=== PATIENT | male | born 1985 | race American Indian/Alaskan Native ===

== ENCOUNTER 2020-02-16 10:11 | Inpatient (IN) | payer SELFPAY ==
[2020-02-16] MEDS ORDERED: LORazepam 2 MG/ML VIAL IV ONE ×2 (10:41→13:12)
[2020-02-16] MEDS ORDERED: MAGNESIUM SULFATE 2 GM/50 ML BAG IV ONE (10:46)
[2020-02-16] MEDS ORDERED: SODIUM CHLORIDE 0.9% 1000 ML 1,000 ML IV ONE ×2 (10:47→14:33)
--- NOTE | 2020-02-16 10:55 | Emergency Department Report ---
HPI - General Chief Complaint: Nausea/Vomiting/Diarrhea Time Seen by Provider: 02/16/20 10:40 - HPI HPI: Room 2 The patient is a 34-year-old male present with a chief complaint of alcohol withdrawal. Patient states for the past 2 days he has had back pain leg cramps eye burning and loss of appetite. Patient also admits to nausea for the past 2 days. Patient states he is experienced the symptoms in the past when he is withdrawing from alcohol. Patient states he goes on alcohol binges last consumed approximately 2 days ago. ED Past Medical Hx - Past Medical History Previous Medical History?: Yes Hx Hypertension: Yes Hx Diabetes: Yes - Surgical History Past Surgical History?: No - Family History Family history: no significant - Social History Smoking Status: Never Smoker Substance Use Type: None (Denies illicit drug use), Alcohol (Heavy binges) - Medications Home Medications: Home Medications Medication Instructions Recorded Confirmed Last Taken Type lisinopriL [Zestril] 20 mg PO QDAY 02/16/20 02/16/20 12/18/19 History ED Review of Systems ROS: Stated complaint: BLOOD PRESSURE Other details as noted in HPI Constitutional: denies: fever Eyes: other (Eyes burning) ENT: denies: throat pain Respiratory: no symptoms reported Cardiovascular: denies: chest pain Endocrine: no symptoms reported Gastrointestinal: nausea Genitourinary: denies: dysuria Musculoskeletal: back pain Neurological: denies: headache Physical Exam - Physical Exam Vital Signs: Vital Signs 02/16/20 10:26 Temperature 98.6 F Pulse Rate 126 H Respiratory 24 Rate Blood Pressure 241/140 [Right] O2 Sat by Pulse 96 Oximetry Physical Exam: GENERAL: The patient is well-developed well-nourished male sitting on stretcher not appearing to be in acute distress. [] HEENT: Normocephalic. Atraumatic. Extraocular motions are intact. Patient has moist mucous membranes. NECK: Supple. Trachea midline CHEST/LUNGS: Clear to auscultation. There is no respiratory distress noted. HEART/CARDIOVASCULAR: Regular. There is tachycardia. There is no gallop rub or murmur. ABDOMEN: Abdomen is soft, nontender. Patient has normal bowel sounds. There is no abdominal distention. SKIN: There is no rash. There is no diaphoresis. NEURO: The patient is awake, alert, and oriented. The patient is cooperative. The patient has no focal neurologic deficits. The patient has normal speech. Cranial nerves II through XII grossly intact MUSCULOSKELETAL: There is no evidence of acute injury. ED Course Vital Signs 02/16/20 10:26 Temperature 98.6 F Pulse Rate 126 H Respiratory 24 Rate Blood Pressure 241/140 [Right] O2 Sat by Pulse 96 Oximetry ED Medical Decision Making - Lab Data Result diagrams: 02/16/20 11:16 02/16/20 11:16 Laboratory Tests 02/16/20 02/16/20 02/16/20 10:43 11:16 11:16 WBC 8.2 RBC 5.38 H Hgb 12.1 Hct 37.0 MCV 69 L MCH 23 L MCHC 33 RDW 20.6 H Plt Count 176 Add Manual Diff Complete Total Counted 100 Seg Neuts % (Manual) 74.0 H Band Neutrophils % 0 Lymphocytes % (Manual) 20.0 Reactive Lymphs % (Man) 0 Monocytes % (Manual) 3.0 Eosinophils % (Manual) 1.0 Basophils % (Manual) 2.0 H Metamyelocytes % 0 Myelocytes % 0 Promyelocytes % 0 Blast Cells % 0 Nucleated RBC % Not Reportable Seg Neutrophils # Man 6.1 Band Neutrophils # 0.0 Lymphocytes # (Manual) 1.6 Abs React Lymphs (Man) 0.0 Monocytes # (Manual) 0.2 Eosinophils # (Manual) 0.1 Basophils # (Manual) 0.2 H Metamyelocytes # 0.0 Myelocytes # 0.0 Promyelocytes # 0.0 Blast Cells # 0.0 WBC Morphology Not Reportable Hypersegmented Neuts Not Reportable Hyposegmented Neuts Not Reportable Hypogranular Neuts Not Reportable Smudge Cells Not Reportable Toxic Granulation Not Reportable Toxic Vacuolation Not Reportable Dohle Bodies Not Reportable Pelger-Huet Anomaly Not Reportable Samy Rods Not Reportable Platelet Estimate Consistent w auto Clumped Platelets Not Reportable Plt Clumps, EDTA Not Reportable Large Platelets Not Reportable Giant Platelets Not Reportable Platelet Satelliting Not Reportable Plt Morphology Comment Not Reportable RBC Morphology Not Reportable Dimorphic RBCs Not Reportable Polychromasia Not Reportable Hypochromasia 1+ Poikilocytosis Not Reportable Anisocytosis 1+ Microcytosis 1+ Macrocytosis Not Reportable Spherocytes Not Reportable Pappenheimer Bodies Not Reportable Sickle Cells Not Reportable Target Cells Not Reportable Tear Drop Cells Not Reportable Ovalocytes Not Reportable Helmet Cells Not Reportable Aldana-Banning Bodies Not Reportable Ell[place] Rings Not Reportable Ta Cells Not Reportable Bite Cells Not Reportable Crenated Cell Not Reportable Elliptocytes Not Reportable Acanthocytes (Spur) Not Reportable Rouleaux Not Reportable Hemoglobin C Crystals Not Reportable Schistocytes Not Reportable Malaria parasites Not Reportable Roddy Bodies Not Reportable Hem Pathologist Commnt No Sodium 132 L Potassium 3.3 L Chloride 87.6 L Carbon Dioxide 32 H Anion Gap 16 BUN 5 L Creatinine 1.3 Estimated GFR > 60 BUN/Creatinine Ratio 4 Glucose 169 H POC Glucose 159 H Calcium 9.0 Magnesium 1.20 L Total Bilirubin 1.10 AST 105 H ALT 87 H Alkaline Phosphatase 59 Total Creatine Kinase 1875 H CK-MB (CK-2) 5.6 H CK-MB (CK-2) Rel Index 0.2 Troponin T < 0.010 Total Protein 6.9 Albumin 4.3 Albumin/Globulin Ratio 1.7 Lipase 32 TSH Free T4 Plasma/Serum Alcohol 02/16/20 02/16/20 11:16 11:16 WBC RBC Hgb Hct MCV MCH MCHC RDW Plt Count Add Manual Diff Total Counted Seg Neuts % (Manual) Band Neutrophils % Lymphocytes % (Manual) Reactive Lymphs % (Man) Monocytes % (Manual) Eosinophils % (Manual) Basophils % (Manual) Metamyelocytes % Myelocytes % Promyelocytes % Blast Cells % Nucleated RBC % Seg Neutrophils # Man Band Neutrophils # Lymphocytes # (Manual) Abs React Lymphs (Man) Monocytes # (Manual) Eosinophils # (Manual) Basophils # (Manual) Metamyelocytes # Myelocytes # Promyelocytes # Blast Cells # WBC Morphology Hypersegmented Neuts Hyposegmented Neuts Hypogranular Neuts Smudge Cells Toxic Granulation Toxic Vacuolation Dohle Bodies Pelger-Huet Anomaly Samy Rods Platelet Estimate Clumped Platelets Plt Clumps, EDTA Large Platelets Giant Platelets Platelet Satelliting Plt Morphology Comment RBC Morphology Dimorphic RBCs Polychromasia Hypochromasia Poikilocytosis Anisocytosis Microcytosis Macrocytosis Spherocytes Pappenheimer Bodies Sickle Cells Target Cells Tear Drop Cells Ovalocytes Helmet Cells Aldana-Banning Bodies Ellsworth Rings [place] Cells Bite Cells Crenated Cell Elliptocytes Acanthocytes (Spur) Rouleaux Hemoglobin C Crystals Schistocytes Malaria parasites Roddy Bodies Hem Pathologist Commnt Sodium Potassium Chloride Carbon Dioxide Anion Gap BUN Creatinine Estimated GFR BUN/Creatinine Ratio Glucose POC Glucose Calcium Magnesium Total Bilirubin AST ALT Alkaline Phosphatase Total Creatine Kinase CK-MB (CK-2) CK-MB (CK-2) Rel Index Troponin T Total Protein Albumin Albumin/Globulin Ratio Lipase TSH 1.700 Free T4 2.03 H Plasma/Serum Alcohol < 0.01 - EKG Data -: EKG Interpreted by Me EKG shows normal: sinus rhythm Rate: tachycardia (116 bpm) - EKG Data Interpretation: nonspecific ST-T wave sylvia (T wave inversion in lead V6), LVH - Differential Diagnosis Alcohol withdrawal, hypothyroidism, gastritis, rhabdomyolysis Critical care attestation.: If time is entered above; I have spent that time in minutes in the direct care of this critically ill patient, excluding procedure time. ED Disposition Clinical Impression: Alcohol withdrawal, Rhabdomyolysis, Hypomagnesemia Disposition: OP ADMIT IP TO THIS HOSP Is pt being admited?: Yes Does the pt Need Aspirin: Yes Condition: Serious Referrals: PRIMARY CARE,MD [Primary Care Provider] - 3-5 Days Time of Disposition: 14:40 (Hospitalist paged (Dr. Foster))
[2020-02-16] MEDS ORDERED: THIAMINE 100 MG, FOLIC ACID 1 MG, MULTIPLE VITAMIN INJ, ADULT 10 ML in SODIUM CHLORIDE ... IV ONE (11:00)
[2020-02-16 11:31] LABS: Hemoglobin 12.1 gm/dl (11.8-15.2); Mean Corpuscular HGB Conc 33 % (32-34); Platelet Count 176 K/mm3 (140-440); Red Blood Count 5.38 M/mm3 (3.65-5.03)
[2020-02-16 11:37] LABS: Mean Corpuscular Volume 69 fl (84-94); Red Cell Distribution Width 20.6 % (13.2-15.2)
[2020-02-16 12:00] LABS: Alanine Aminotransferase 87 units/L (7-56); Albumin 4.3 g/dL (3.9-5); BUN/Creatinine Ratio 4; Blood Urea Nitrogen 5 mg/dL (9-20); Creatine Kinase MB 5.6 ng/mL (0.0-4.0); Hemolysis Index 5
[2020-02-16 12:06] LABS: Free T4 (Free Thyroxine) 2.03 ng/dL (0.76-1.46)
[2020-02-16 12:24] LABS: Total Cells Counted 100
[2020-02-16 12:25] LABS: Hypochromasia 1+
[2020-02-16 12:26] LABS: Anisocytosis 1+; Platelet Estimate Consistent w Auto
[2020-02-16] MEDS ORDERED: LORazepam 2 MG/ML VIAL IV PRN ×3 (13:12)
[2020-02-16 18:11] VITALS: BP 198/130
== END 2020-02-16 17:50 | disposition left against medical advice (07) | DRG 894 ==
LOC: ED 10:11 → 4A 15:51
PROVIDERS: ADMIT Internal Medicine; ATTEND Internal Medicine
DX: F10.239 Alcohol dependence with withdrawal, unspecified (principal); M62.82 Rhabdomyolysis; E83.42 Hypomagnesemia; I10 Essential (primary) hypertension; E11.9 Type 2 diabetes mellitus without complications; Y90.9 Presence of alcohol in blood, level not specified; Z53.29 Procedure and treatment not carried out because of patient's decision for other reasons
CPT/HCPCS: 36415; 80053; 80320; 82550; 82553; 82962; 83690; 83735; 84439; 84443; 84484; 85007; 85025; 93005; 96365; 96366; 96375; G0378; G0480; J2060; J3411; J3475; J7030

== ENCOUNTER 2021-02-17 08:52 | Emergency (ER) | payer SELFPAY ==
--- NOTE | 2021-02-17 09:45 | Event Note ---
ED Screening Note Date of service: 02/17/21 Time: 09:40 ED Screening Note: 35-year-old obese -[place] male with a past medical history of hypertension diabetes and is noncompliant to his medication regiment secondary to relocating from [place]. Patient denies any chest pain no shortness of breath. Patient states that he went to get a physical on Friday and was told that his blood pressure and blood sugar was elevated. Patient denies any headache no dizziness no nausea no vomiting. It was noted that patient was tachycardic at 120 and a blood pressure elevated of 217/125. This initial assessment/diagnostic orders/clinical plan/treatment(s) is/are subject to change based on patients health status, clinical progression and re- assessment by fellow clinical providers in the ED. Further treatment and workup at subsequent clinical providers discretion. Patient/guardian urged not to elope from the ED as their condition may be serious if not clinically assessed and managed. Initial orders include: CBC CMP maia, ua ekg.
[2021-02-17] MEDS ORDERED: cloNIDine 0.1 MG TAB PO ONE (09:59)
--- NOTE | 2021-02-17 10:21 | Emergency Department Report ---
ED General Adult HPI - General Chief complaint: High BP Stated complaint: HBP,AND HIGH PRESSURE Time Seen by Provider: 02/17/21 09:29 Source: patient Mode of arrival: Ambulatory Limitations: No Limitations - History of Present Illness Initial comments: Patient is 35 years old male with history of hypertension and diabetes. Patient is noncompliant with his medication. Patient presented to the ER stating that his blood pressure is really high. Patient denied any headache, neck pain, chest pain or shortness of breath. Patient denied any focal weakness numbness or tingling sensation. No bowel or bladder incontinence. Patient stated that he was taking lisinopril however his blood pressure was not controlled on the medication. - Related Data Home Medications Medication Instructions Recorded Confirmed Last Taken lisinopriL [Zestril] 20 mg PO QDAY 02/16/20 02/16/20 12/18/19 Previous Rx's Medication Instructions Recorded Last Taken Type Metformin HCl [metFORMIN] 500 mg PO BID #60 tablet 02/16/20 Unknown Rx Valsartan [Diovan] 160 mg PO BID 30 Days #60 tablet 02/16/20 Unknown Rx amLODIPine 10 mg PO DAILY #30 tab 02/17/21 Unknown Rx hydroCHLOROthiazide [HCTZ] 25 mg PO QDAY #30 tablet 02/17/21 Unknown Rx Allergies Allergy/AdvReac Type Severity Reaction Status Date / Time No Known Allergies Allergy Unverified 02/16/20 10:26 ED Review of Systems ROS: Stated complaint: HBP,AND HIGH PRESSURE Other details as noted in HPI Comment: All other systems reviewed and negative Constitutional: denies: chills, fever Respiratory: denies: cough, shortness of breath, SOB with exertion, SOB at rest Cardiovascular: denies: chest pain, palpitations Gastrointestinal: denies: abdominal pain, nausea, vomiting, diarrhea, constipation, hematemesis, melena, hematochezia Musculoskeletal: denies: back pain Neurological: denies: headache, weakness, numbness, paresthesias, confusion ED Past Medical Hx - Past Medical History Previous Medical History?: Yes Hx Hypertension: Yes Hx Diabetes: Yes - Surgical History Past Surgical History?: No - Social History Smoking Status: Never Smoker Substance Use Type: None (Denies illicit drug use), Alcohol (Heavy binges) - Medications Home Medications: Home Medications Medication Instructions Recorded Confirmed Last Taken Type Metformin HCl [metFORMIN] 500 mg PO BID #60 tablet 02/16/20 Unknown Rx Valsartan [Diovan] 160 mg PO BID 30 Days #60 tablet 02/16/20 Unknown Rx lisinopriL [Zestril] 20 mg PO QDAY 02/16/20 02/16/20 12/18/19 History amLODIPine 10 mg PO DAILY #30 tab 02/17/21 Unknown Rx hydroCHLOROthiazide [HCTZ] 25 mg PO QDAY #30 tablet 02/17/21 Unknown Rx ED Physical Exam - General Limitations: No Limitations General appearance: alert, in no apparent distress - Head Head exam: Present: atraumatic, normocephalic, normal inspection - Eye Eye exam: Present: normal appearance, PERRL - ENT ENT exam: Present: normal exam, normal orophraynx, mucous membranes moist - Neck Neck exam: Present: normal inspection, full ROM. Absent: tenderness, meningismus - Respiratory Respiratory exam: Present: normal lung sounds bilaterally - Cardiovascular Cardiovascular Exam: Present: regular rate, normal rhythm, normal heart sounds - GI/Abdominal GI/Abdominal exam: Present: soft, normal bowel sounds. Absent: distended, tenderness, guarding, rebound, rigid, organomegaly, mass, bruit, pulsatile mass, hernia - Extremities Exam Extremities exam: Present: normal inspection, full ROM, normal capillary refill. Absent: tenderness - Back Exam Back exam: Present: normal inspection, full ROM. Absent: CVA tenderness (R), CVA tenderness (L) - Neurological Exam Neurological exam: Present: alert, oriented X3, CN II-XII intact, normal gait, reflexes normal. Absent: motor sensory deficit - Psychiatric Psychiatric exam: Present: normal mood - Skin Skin exam: Present: warm, intact, normal color ED Course Vital Signs 02/17/21 02/17/21 02/17/21 09:22 11:30 12:32 Temperature 98.8 F 99.0 F Pulse Rate 120 H 88 100 H Respiratory 24 18 Rate Blood Pressure 217/125 190/122 167/111 O2 Sat by Pulse 98 98 Oximetry ED Medical Decision Making - Lab Data Result diagrams: 02/17/21 10:08 02/17/21 10:08 - Medical Decision Making Patient is 35 years old male with history of hypertension and diabetes. Patient is noncompliant with his medication. Patient presented to the ER stating that his blood pressure is really high. Patient denied any headache, neck pain, chest pain or shortness of breath. Patient denied any focal weakness numbness or tingling sensation. No bowel or bladder incontinence. Patient stated that he was taking lisinopril however his blood pressure was not controlled on the medication. Patient remained stable in the ER. Patient blood pressure improved significantly after 0.2 mg of clonidine. Labs reviewed and is unremarkable. Patient given prescription for Norvasc and hydrochlorothiazide and advised to follow-up with his primary doctor in the next 2 to 3 days and to return to the ER if he develop any new symptoms. Critical care attestation.: If time is entered above; I have spent that time in minutes in the direct care of this critically ill patient, excluding procedure time. ED Disposition Clinical Impression: Malignant hypertension Disposition: 01 HOME / SELF CARE / HOMELESS Is pt being admited?: No Condition: Stable Instructions: Hypertension (ED), Hypertension, Adult, [id number] Prescriptions: amLODIPine 10 mg PO DAILY #30 tab hydroCHLOROthiazide [HCTZ] 25 mg PO QDAY #30 tablet Referrals: PRIMARY CARE [Primary Care Provider] - 3-5 Days [facility] [Provider Group] - 3-5 Days
[2021-02-17 10:38] LABS: Basophils # (Auto) 0.1 K/mm3 (0.0-0.1); Basophils % (Auto) 0.9 % (0.0-1.8); Eosinophils # (Auto) 0.1 K/mm3 (0.0-0.4); Eosinophils % (Auto) 1.3 % (0.0-4.3); Hematocrit 38.9 % (35.5-45.6); Lymphocytes # (Auto) 2.1 K/mm3 (1.2-5.4); Lymphocytes % (Auto) 25.1 % (13.4-35.0); Mean Corpuscular HGB Conc 31 % (32-34); Mean Corpuscular Volume 71 fl (84-94); Monocytes # (Auto) 0.7 K/mm3 (0.0-0.8); Monocytes % (Auto) 7.8 % (0.0-7.3); Platelet Count 278 K/mm3 (140-440); Red Cell Distribution Width 17.8 % (13.2-15.2)
[2021-02-17 10:59] LABS: Alanine Aminotransferase 32 units/L (7-56); Albumin 4.1 g/dL (3.9-5); BUN/Creatinine Ratio 15; Blood Urea Nitrogen 19 mg/dL (9-20); Calcium 9.2 mg/dL (8.4-10.2); Hemolysis Index 17
[2021-02-17 12:33] VITALS: BP 167/111
== END 2021-02-17 13:00 | disposition home or self-care (01) ==
LOC: ED 08:52
DX: I10 Essential (primary) hypertension (principal); E11.9 Type 2 diabetes mellitus without complications; Z72.89 Other problems related to lifestyle; Z79.84 Long term (current) use of oral hypoglycemic drugs; Z79.899 Other long term (current) drug therapy
CPT/HCPCS: 36415; 80053; 82805; 82962; 85025; 99283